=== PATIENT | female | born 1970 | race Hispanic/Latino ===

== ENCOUNTER 2019-01-24 08:11 | Outpatient (CLI) | payer OTHER ==
--- NOTE | 2019-01-24 11:39 | ULT ---
ABDOMINAL ULTRASOUND: HISTORY: Elevated LFTs. FINDINGS: Real-time imaging of the upper abdomen was performed. This shows a normal-appearing gallbladder. Th e common duct is 2-3 mm. The technologist reports a negative ultrasound Mckeon's sign. The liver is of increased echogenicity measuring 15.2 cm. The spleen measures 9.6 cm in size. Right and left kidneys are within normal limits of size and not obstructed. The pancreas is partiall y obscured. The abdominal aorta and IVC regions are unremarkable. IMPRESSION: Fatty changes of the liver. POS: [facility]
== END 2019-01-24 08:12 | disposition home or self-care (01) ==
LOC: SCSULT 08:11
PROVIDERS: ATTEND Family Medicine
DX: R79.89 Other specified abnormal findings of blood chemistry (principal); K76.0 Fatty (change of) liver, not elsewhere classified
CPT/HCPCS: 76700